=== PATIENT | male | born 1970 | race Caucasian/White ===

== ENCOUNTER 2016-09-27 11:03 | Outpatient (CLI) ==
[2012-10-07 19:05] VITALS: BMI 20.9
== END 2016-09-27 11:04 ==
LOC: AMBL 11:03
PROVIDERS: ATTEND Internal Medicine
DX: R56.9 Unspecified convulsions (principal); S00.12XA Contusion of left eyelid and periocular area, initial encounter; R41.0 Disorientation, unspecified; R00.0 Tachycardia, unspecified; G35 Multiple sclerosis; I70.90 Unspecified atherosclerosis; W22.8XXA Striking against or struck by other objects, initial encounter

== ENCOUNTER 2018-03-01 13:51 | Inpatient (IN) ==
--- NOTE | 2018-03-01 14:59 | ED.PDOC ---
General ED Provider: Dr. ALESSANDRA RODRIGUEZ Chief Complaint: Non-specific Complaint Stated Complaint: Altered mental status. Friend of family brings patient in. Friend called by pts father due to pt has been sleeping for the last 2 days and difficult to awaken. Patient has hx MS and normally walks with cane. Friend stated has not had oral intake for past 2 days. It seems his MS symptoms have worsened with progressive weakness. Unfamiliar with meds he has taken. Time Seen by Physician: 14:25 Mode of Arrival: Walk-In Information Source: Patient Exam Limitations: No limitations Primary Care Provider: ALESSANDRA GRAY Nursing and Triage Documentation Reviewed and Agree: Yes Does patient meet sepsis criteria?: No System Inflammatory Response Syndrome: Pulse >90 BPM Sepsis Protocol: For patient's 13 years and over: Temp is 96.8 and below OR 101 and greater Pulse >90 BPM Resp >20/minute Acutely Altered Mental Status Are patient's symptoms suggestive of a new infection, such as: -Pneumonia -Skin, Soft Tissue -Endocarditis -UTI -Bone, Joint Infection -Implantable Device -Acute Abdominal Infection -Wound Infection -Meningitis -Blood Stream Catheter Infection -Unknown Neurological Complaint Exam - Altered Mental Status Complaint/Exam Current Mental Status: Confusion Onset: Gradual Symptoms Are: Worse Timing: Constant Episodes Lasting: Minutes Initial Severity: Moderate Current Severity: Moderate Eye Deviation Present: No Character: Reports: Confusion, Lethargy Aggravating: Reports: None Alleviating: Reports: None Associated Signs and Symptoms: Reports: Weakness, Illness Related History: Denies: Similar episode, Suicidal Ideation Cardiac Risk Factors: Reports: None CVA Risk Factors: Reports: Hypertension Carotid Bruit Present: No Nystagmus Present: No Gag Reflex Present: Yes Meningeal Signs Positive: No Focal Weakness: Present: RLE, LLE Focal Sensory Loss: Present: None Gait: Abnormal [id number]: Abnormal right, Abnormal left Babinski Sign: Negative Right, Negative Left Signs of Injury: Present: Normal findings Thrombolytics Considered: No Differential Diagnoses: Intoxication, Metabolic Disorder, Overdose, Medication reaction, Other (Overdose) Review of Systems - Review Of Systems Constitutional: Reports: Weakness Eyes: Reports: No symptoms Ears, Nose, Mouth, Throat: Reports: No symptoms Respiratory: Reports: Cough Cardiac: Reports: No symptoms GI: Reports: No symptoms : Reports: No symptoms Musculoskeletal: Reports: No symptoms Skin: Reports: No symptoms Neurological: Reports: Cognitive dysfunction Endocrine: Reports: No symptoms Hematologic/Lymphatic: Reports: No symptoms All Other Systems: Reviewed and Negative Past Medical History - Past Medical History Previously Healthy: No Endocrine: Reports: Unknown Cardiovascular: Reports: Unknown Respiratory: Reports: Unknown Hematological: Reports: Unknown Gastrointestinal: Reports: Unknown Genitourinary: Reports: Unknown Neuro/Psych: Reports: Unknown Musculoskeletal: Reports: Unknown Cancer: Reports: Unknown Other Pertinent Past Medical History: legally blind Ambulates with a straight cane - Surgical History General Surgical History: Reports: Unknown - Family History Family History: Reports: Unknown - Social History Smoking Status: Current every day smoker, Heavy tobacco smoker Hx Substance Use: No Alcohol Screening: Occasionally Physical Exam - Physical Exam Appearance: Ill-appearing, Thin Ill-appearing: Moderate Pain Distress: None Eyes: APRIL, EOMI, Conjunctiva clear ENT: Ears normal, Nose normal, Oropharynx normal Neck: Supple Respiratory: Airway patent, Breath sounds clear, Breath sounds equal Cardiovascular: RRR GI/: Soft, Nontender, No masses, Bowel sounds normal Musculoskeletal: Limited strength (diminished strength in lower extremities) Skin: Warm, Dry Neurological: Motor intact, Cranial nerves intact, Alert, Oriented (To place, time and location ), Alert to verbal Interpretation - Radiology Interpretation Radiology Interpretation By: Radiologist Exam Interpreted: CXR (NO abnormalities), CT Scan (No acute intracranial abnormalities/old cva) Physician Notification - Case Discussed Physician Notified: Dr Gan-Discussed case Time of Notification: 18:30 (Agrees for admission) Critical Care Note - Critical Care Note Total Time (mins): 120 Course - Course Hematology/Chemistry: 03/01/18 15:13 03/01/18 15:13 Orders, Labs, Meds: Lab Review 03/01/18 03/01/18 03/01/18 15:00 15:10 15:13 WBC 22.02 H RBC 4.90 Hgb 16.2 Hct 49.5 MCV 101.0 H MCH 33.1 H MCHC 32.7 RDW Coeff of Aj 15.0 H Plt Count 370 Immature Gran % (Auto) 0.6 Neut % (Auto) 82.4 Lymph % (Auto) 6.0 L [place] % (Auto) 5.2 Eos % (Auto) 5.3 Baso % (Auto) 0.5 Immature Gran # (Auto) 0.1 Neut # (Auto) 18.1 H Lymph # (Auto) 1.3 [place] # (Auto) 1.1 Eos # (Auto) 1.2 H Baso # (Auto) 0.1 Puncture Site O2 Saturation ABG pH ABG pCO2 ABG pO2 ABG HCO3 ABG Total CO2 ABG Base Excess FiO2 % Sodium Potassium Chloride Carbon Dioxide Anion Gap BUN Creatinine Estimated GFR (MDRD) BUN/Creatinine Ratio Glucose Lactic Acid Calcium Magnesium Total Bilirubin AST ALT Alkaline Phosphatase Total Creatine Kinase CK-MB (CK-2) CK-MB (CK-2) % Troponin I < 0.012 Total Protein Albumin Globulin Albumin/Globulin Ratio Procalcitonin Urine Color Urine Clarity Urine pH Ur Specific [place] Urine Protein Urine Glucose (UA) Urine Ketones Urine Blood Urine Nitrite Urine Bilirubin Urine Urobilinogen Ur Leukocyte Esterase Ur Squamous Epith Cells Hyaline Casts Urine Opiates Screen Ur Oxycodone Screen Urine Methadone Screen Ur Propoxyphene Screen Ur Barbiturates Screen U Tricyclic Antidepress Ur Phencyclidine Scrn Ur Amphetamine Screen U Methamphetamines Scrn U Benzodiazepines Scrn Urine Cocaine Screen U Cannabinoids Screen Influ A Molecular Assay Negative by naat Influ B Molecular Assay Negative by naat 03/01/18 03/01/18 03/01/18 15:13 16:19 16:35 WBC RBC Hgb Hct MCV MCH MCHC RDW Coeff of Aj Plt Count Immature Gran % (Auto) Neut % (Auto) Lymph % (Auto) [place] % (Auto) Eos % (Auto) Baso % (Auto) Immature Gran # (Auto) Neut # (Auto) Lymph # (Auto) [place] # (Auto) Eos # (Auto) Baso # (Auto) Puncture Site Rb O2 Saturation 90.0 L ABG pH 7.236 L* ABG pCO2 42.1 ABG pO2 69.0 L ABG HCO3 17.9 L ABG Total CO2 19 L ABG Base Excess -10 L FiO2 % 21.0 Sodium 139.8 Potassium 4.31 Chloride 107.2 H Carbon Dioxide 17.4 L Anion Gap 19.51 BUN 20.5 H Creatinine 1.12 H Estimated GFR (MDRD) 70.00 BUN/Creatinine Ratio 18.30 Glucose 74.5 Lactic Acid Calcium 9.39 Magnesium 1.94 Total Bilirubin 0.33 AST 61.9 H ALT 19.7 Alkaline Phosphatase 88.9 Total Creatine Kinase 2089.9 H CK-MB (CK-2) 37.100 H* CK-MB (CK-2) % 1.7700 Troponin I Total Protein 7.15 Albumin 4.44 Globulin 2.71 Albumin/Globulin Ratio 1.63 Procalcitonin Urine Color Urine Clarity Urine pH Ur Specific [place] Urine Protein Urine Glucose (UA) Urine Ketones Urine Blood Urine Nitrite Urine Bilirubin Urine Urobilinogen Ur Leukocyte Esterase Ur Squamous Epith Cells Hyaline Casts Urine Opiates Screen Negative Ur Oxycodone Screen Positive Urine Methadone Screen Negative Ur Propoxyphene Screen Negative Ur Barbiturates Screen Negative U Tricyclic Antidepress Positive Ur Phencyclidine Scrn Negative Ur Amphetamine Screen Negative U Methamphetamines Scrn Negative U Benzodiazepines Scrn Positive Urine Cocaine Screen Negative U Cannabinoids Screen Negative Influ A Molecular Assay Influ B Molecular Assay 03/01/18 03/01/18 03/01/18 16:35 16:43 16:43 WBC RBC Hgb Hct MCV MCH MCHC RDW Coeff of Aj Plt Count Immature Gran % (Auto) Neut % (Auto) Lymph % (Auto) [place] % (Auto) Eos % (Auto) Baso % (Auto) Immature Gran # (Auto) Neut # (Auto) Lymph # (Auto) [place] # (Auto) Eos # (Auto) Baso # (Auto) Puncture Site O2 Saturation ABG pH ABG pCO2 ABG pO2 ABG HCO3 ABG Total CO2 ABG Base Excess FiO2 % Sodium Potassium Chloride Carbon Dioxide Anion Gap BUN Creatinine Estimated GFR (MDRD) BUN/Creatinine Ratio Glucose Lactic Acid 0.82 Calcium Magnesium Total Bilirubin AST ALT Alkaline Phosphatase Total Creatine Kinase CK-MB (CK-2) CK-MB (CK-2) % Troponin I Total Protein Albumin Globulin Albumin/Globulin Ratio Procalcitonin 6.56 Urine Color Yellow Urine Clarity Clear Urine pH 6.0 Ur Specific [place] >=1.030 Urine Protein 1+ Urine Glucose (UA) Negative Urine Ketones 4+ Urine Blood Negative Urine Nitrite Negative Urine Bilirubin 2+ Urine Urobilinogen 0.2 Ur Leukocyte Esterase Negative Ur Squamous Epith Cells Not present Hyaline Casts 20-30 Urine Opiates Screen Ur Oxycodone Screen Urine Methadone Screen Ur Propoxyphene Screen Ur Barbiturates Screen U Tricyclic Antidepress Ur Phencyclidine Scrn Ur Amphetamine Screen U Methamphetamines Scrn U Benzodiazepines Scrn Urine Cocaine Screen U Cannabinoids Screen Influ A Molecular Assay Influ B Molecular Assay Orders Category Date Time Status ADMIT PATIENT INPATIENT .TO SCU (MONITORED BED) ADMISSION 03/01/18 18:24 Active ABG DRAW REQUEST Stat CARDIO 03/01/18 16:19 Completed EKG-(ED ONLY) Stat CARDIO 03/01/18 14:58 Completed TELEMETRY MONITORING TELE CARE 03/01/18 18:26 Active [facility] [ED CATHETER INSERTION AND CARE] .ONCE EMERGENCY 03/01/18 16:17 Active IV [ED IV/MEDIPORT/POWERPORT] .ONCE EMERGENCY 03/01/18 15:21 Active ABG Stat LAB 03/01/18 16:19 Completed BLOOD CULTURE (ED ONLY) Stat LAB 03/01/18 16:43 Received CBC W/ AUTO DIFF Stat LAB 03/01/18 15:13 Completed CMP [COMPREHENSIVE METABOLIC PANEL] Stat LAB 03/01/18 15:13 Completed CPK [CREATINE KINASE] Stat LAB 03/01/18 15:13 Completed FLU A & B MOLECULAR [FLU A/B MOLECULAR] Stat LAB 03/01/18 15:10 Completed LACTIC ACID Stat LAB 03/01/18 16:43 Completed MAGNESIUM Stat LAB 03/01/18 15:13 Completed PROCALCITONIN Stat LAB 03/01/18 16:43 Completed TROPONIN I Stat LAB 03/01/18 15:00 Completed UA [URINALYSIS C & S IF INDICATED] Stat LAB 03/01/18 16:35 Completed URINE DRUG SCREEN (RAPID FOR ED) [DRUG SCREEN, URINE, LAB 03/01/18 16:35 Completed RAPID] Stat 0.9 % Sodium Chloride [Saline Flush] MEDS 03/01/18 15:22 Active 1 syr IVF PRN PRN 0.9 % Sodium Chloride [Saline Flush] MEDS 03/01/18 15:22 Discontinued 1 syr IVF PRN PRN Lidocaine HCl [Uro-Jet] MEDS 03/01/18 16:18 Discontinued 10 ml MUCOUSMEMB .STK-MED ONE Lidocaine HCl [Uro-Jet] MEDS 03/01/18 16:17 Discontinued 10 ml MUCOUSMEMB ONCE STA Naloxone HCl [Narcan] MEDS 03/01/18 16:37 Discontinued 0.4 mg IVP ONCE STA Naloxone HCl [Narcan] MEDS 03/01/18 17:31 Discontinued 0.4 mg IVP ONCE STA Sodium Chloride 0.9% [Sodium Chloride] 1,000 ml MEDS 03/01/18 15:22 Discontinued IV BOLUS CHEST, 2 VIEWS PA & LAT Stat RADS 03/01/18 14:[address] HEAD W/O CONTRAST Stat RADS 03/01/18 14:59 Completed Medications Generic Name Dose Route Start Last Admin Trade Name Suraj PRN Reason Stop Dose Admin Enoxaparin Sodium 40 mg 03/01/18 19:30 Lovenox SUBCUT DAILY [facility] Aztreonam 1 gm/ Sodium 50 mls @ 75 mls/hr 03/01/18 19:30 Chloride IV Q8HR GLENDY Cefepime HCl 2 gm/ Sodium 100 mls @ 100 mls/hr 03/02/18 09:00 Chloride IV Q12HR GLENDY Gentamicin Sulfate 60 mg/ 51.5 mls @ 100 mls/hr 03/01/18 21:00 Sodium Chloride IV Q8HR GLENDY Cefepime HCl 2 gm/ Sodium 100 mls @ 100 mls/hr 03/01/18 19:35 Chloride IV Q12HR [facility] Sodium Chloride 1,000 mls @ 200 mls/hr 03/01/18 19:30 Sodium Chloride IV .Q5H [facility] Methylprednisolone Sodium Succinate 125 mg 03/01/18 20:00 Solu-Medrol 125 Mg IVP Q8HR [facility] Sodium Chloride 1 syr 03/01/18 15:22 03/01/18 15:41 Saline Flush IVF 1 syr PRN PRN Administration To flush IV Discontinued Medications Generic Name Dose Route Start Last Admin Trade Name Suraj PRN Reason Stop Dose Admin Sodium Chloride 1,000 mls @ 500 mls/hr 03/01/18 15:22 03/01/18 15:41 Sodium Chloride IV 03/01/18 17:21 500 mls/hr BOLUS STA Administration Cefepime HCl 2 gm/ Sodium 100 mls @ 100 mls/hr 03/01/18 18:30 03/01/18 19:02 Chloride IV 100 mls/hr Q12HR GLENDY Administration Lidocaine HCl 10 ml 03/01/18 16:17 03/01/18 16:41 Uro-Jet MUCOUSMEMB 03/01/18 16:18 10 ml ONCE STA Administration Naloxone HCl 0.4 mg 03/01/18 16:37 03/01/18 16:58 Narcan IVP 03/01/18 16:38 0.4 mg ONCE STA Administration Naloxone HCl 0.4 mg 03/01/18 17:31 03/01/18 17:40 Narcan IVP 03/01/18 17:32 0.4 mg ONCE STA Administration Sodium Chloride 1 syr 03/01/18 15:22 Saline Flush IVF PRN PRN To flush IV Vital Signs: Temp Pulse Resp BP Pulse Ox 03/01/18 17:13 100 H 13 144/129 H 100 03/01/18 13:51 98.4 F 123 H 20 89/66 L 93 L Departure - Departure Time of Disposition: 18:45 Disposition: ADMITTED INPATIENT Discharge Problem: Altered mental state, Metabolic acidosis, Drug overdose, Rhabdomyolysis Condition: Serious Pt referred to PMD for follow-up: No IPMP verified?: No Allergies/Adverse Reactions: Allergies erythromycin base Adverse Reaction (Verified 03/01/18 14:02) gabapentin [From Neurontin] Adverse Reaction (Verified 03/01/18 14:02) Penicillins Adverse Reaction (Verified 03/01/18 14:02) Home Medications: Ambulatory Orders Carisoprodol [Soma] 350 mg PO QID 10/07/12 Clopidogrel Bisulfate [Plavix] 75 mg PO DAILY 12/15/16 Oxycodone HCl/Acetaminophen [Percocet 10-325 mg Tablet] 1 tab PO QID 12/15/16 Amitriptyline HCl [Elavil] 100 mg PO DAILY 01/22/18 Disposition Discussed With: Patient, Family (per Dr Gan)
[2018-03-01] MEDS ORDERED: SODIUM CHLORIDE 1,000 ML IV STA (15:22)
--- NOTE | 2018-03-01 15:53 | DI ---
EXAM: CHEST FRONTAL AND LATERAL VIEWS HISTORY: Altered mental status. COMPARISON: 12/15/2016 FINDINGS: Heart size and mediastinal contour remain within normal limits. Lungs are hyperinflated . No acute infiltrates are seen. No vascular congestion. There is no consolidation, visible pleura l fluid or pneumothorax. Bones reveal no acute fracture. IMPRESSION: No acute cardiopulmonary process.
--- NOTE | 2018-03-01 16:04 | CT ---
EXAM: CT of the head without contrast History: Altered mental status. Comparison: Head CT 01/22/2018 Technique: Multiplanar CT images through the head were obtained without the administration of IV con trast Findings: The visualized paranasal sinuses and mastoid air cells are clear in general. No acute joshua varial abnormalities. Intracranially there is mild diffuse cerebral atrophy which is stable. No dominant mass or midline s hift. No hydrocephalous. No acute intracranial hemorrhage or abnormal extraaxial fluid collections. Stable small area of encephalomalacia within the left frontal lobe compatible with old infarction. Impression: 1. No acute intracranial process. 2. Stable mild diffuse cerebral atrophy. 3. Stable small area of encephalomalacia within the left frontal lobe compatible with old infarction .
[2018-03-01] MEDS ORDERED: URO-JET MUCOUSMEMB STA (16:17)
[2018-03-01] MEDS ORDERED: URO-JET MUCOUSMEMB ONE (16:18)
[2018-03-01] MEDS ORDERED: NARCAN IVP STA ×2 (16:37→17:31)
[2018-03-01] MEDS ORDERED: MAXIPIME 2 GM in SODIUM CHLORIDE 100 ML IV SCH ×2 (18:30→19:35)
[2018-03-01] MEDS: MAXIPIME ONE ×2 (19:01→19:02)
[2018-03-01] MEDS ORDERED: SODIUM CHLORIDE 1,000 ML IV SCH (19:30)
--- NOTE | 2018-03-01 20:37 | CT ---
EXAM: CT of the chest without contrast. HISTORY: Sepsis. COMPARISON: None. TECHNIQUE: Contiguous axial images were obtained from lung apices to the upper abdomen. Study was p erformed without contrast. Sagittal and coronal reformats reviewed. FINDINGS: The lung windows show no lobar consolidation or effusion. There is minimal atelectasis in the left lung base. There are no suspicious pulmonary nodules. Minimal emphysematous changes are s een in the lung apices. There is a soft tissue density in the left mainstem bronchus, measuring up t o 10 x 3 mm. This has the appearance of mucus. There is mucous plugging in the left lower lobe bron chi as well. The heart size is within normal limits. There is no significant mediastinal or hilar a denopathy. Limited views of the upper abdomen are unremarkable there is nonobstructing calcification in the righ t kidney. IMPRESSION: 1. Minimal left lower lobe atelectasis. Consolidation or effusion. 2. Right nephrolithiasis. No obstructing stones.
--- NOTE | 2018-03-01 20:41 | CT ---
EXAM: CT of the abdomen and pelvis without contrast. HISTORY: Sepsis. PROCEDURE: Contiguous axial CT images of the abdomen and pelvis without contrast with coronal and sa gittal reformats. FINDINGS: There is motion artifact which limits the exam. The liver, gallbladder, pancreas, spleen, adrenal glands and left kidney are normal in appearance. There is a 2 mm nonobstructive calcificatio n in the right kidney. The abdominal aorta is within normal limits in diameter. There are atheroscl erotic calcifications in the abdominal aorta and bilateral iliac arteries. The appendix is normal in appearance. There is fecal stasis in the colon. No bowel obstruction. No free fluid or free air i n the abdomen or pelvis. There is a Solano catheter in the bladder and the bladder is minimally fille d. There is minimal air in the bladder consistent with the Solano catheter placement. The seminal v esicles and prostate gland are unremarkable. The bones and soft tissues are unremarkable. CT chest of 03/01/2018 dictated separately. Impression: Fecal stasis in the colon. Nonobstructive right nephrolithiasis as described. Solano catheter in the bladder.
[2018-03-01] MEDS ORDERED: AZACTAM ONE (21:14)
[2018-03-01] MEDS ORDERED: GENTAMICIN SULFATE ONE (21:15)
[2018-03-01] MEDS ORDERED: MAXIPIME IV ONE (21:15)
[2018-03-01] MEDS: AZACTAM 1 GM in SODIUM CHLORIDE 50 ML IV SCH ×2 (21:26→21:27)
[2018-03-01] MEDS: LOVENOX SUBCUT SCH (21:28)
[2018-03-01] MEDS: SOLU-MEDROL 125 MG IVP SCH ×2 (21:28→21:36)
[2018-03-01] MEDS: SODIUM CHLORIDE IV SCH (22:26)
[2018-03-01] MEDS: GENTAMICIN SULFATE IV SCH (22:26)
[2018-03-01] MEDS ORDERED: INFUVITE ADULT IV ONE (23:48)
[2018-03-01] MEDS: INFUVITE ADULT 10 ML in DEXTROSE 5%-LR IV SOLUTION 1,000 ML IV SCH (23:52)
[2018-03-02 01:13] VITALS: BMI 12.6
[2018-03-02] MEDS ORDERED: AZACTAM ONE (04:27)
[2018-03-02] MEDS ORDERED: GENTAMICIN SULFATE ONE (04:27)
[2018-03-02] MEDS ORDERED: INFUVITE ADULT IV ONE ×3 (04:33→19:31)
[2018-03-02] MEDS: SOLU-MEDROL 125 MG IVP SCH ×2 (04:41→13:04)
[2018-03-02] MEDS ORDERED: SODIUM CHLORIDE 50 ML IV ONE ×2 (04:42→05:18)
[2018-03-02] MEDS: AZACTAM 1 GM in SODIUM CHLORIDE 50 ML IV SCH ×2 (05:19→15:25)
[2018-03-02] MEDS: GENTAMICIN SULFATE IV SCH ×3 (05:19→21:47)
[2018-03-02] MEDS: SODIUM CHLORIDE IV SCH ×3 (05:19→21:47)
[2018-03-02] MEDS: INFUVITE ADULT 10 ML in DEXTROSE 5%-LR IV SOLUTION 1,000 ML IV SCH ×3 (05:20→19:42)
[2018-03-02] MEDS: LOVENOX SUBCUT SCH (09:12)
[2018-03-02] MEDS: MAXIPIME 2 GM in SODIUM CHLORIDE 100 ML IV SCH ×2 (09:12→21:48)
--- NOTE | 2018-03-02 13:38 | US ---
EXAM: Bilateral carotid artery Doppler History: Weakness. Technique: Multiple sonographic images through the bilateral internal carotid arteries were obtained . Color duplex Doppler was used to interrogate vascular flow. Findings: The right ICA peak systolic velocity is within normal limits measuring 106 cm/sec. The right ICA/cca PSV ratio is normal at 1.3. The right vertebral artery is patent and demonstrates antegrade flow. G ray scale images demonstrate no significant plaque buildup within the right internal carotid artery. The left ICA peak systolic velocity is within normal limits measuring 75 cm/sec. The left ICA/cca PS V ratio is normal at 0.70. The left vertebral artery is patent and demonstrates antegrade flow. Gra y scale images demonstrate no significant plaque buildup within the left internal carotid artery Impression: No significant hemodynamic stenosis of the bilateral internal carotid arteries.
[2018-03-03] MEDS ORDERED: INFUVITE ADULT IV ONE ×4 (02:58→23:58)
[2018-03-03] MEDS: INFUVITE ADULT 10 ML in DEXTROSE 5%-LR IV SOLUTION 1,000 ML IV SCH ×5 (03:02→17:41)
[2018-03-03] MEDS: GENTAMICIN SULFATE IV SCH ×3 (05:48→20:15)
[2018-03-03] MEDS: SODIUM CHLORIDE IV SCH ×3 (05:48→20:15)
[2018-03-03] MEDS: MAXIPIME 2 GM in SODIUM CHLORIDE 100 ML IV SCH ×2 (08:43→20:56)
[2018-03-03] MEDS: LOVENOX SUBCUT SCH (08:44)
[2018-03-04] MEDS: INFUVITE ADULT 10 ML in DEXTROSE 5%-LR IV SOLUTION 1,000 ML IV SCH ×3 (00:02→19:14)
[2018-03-04] MEDS: SODIUM CHLORIDE IV SCH ×3 (04:22→21:56)
[2018-03-04] MEDS: GENTAMICIN SULFATE IV SCH ×3 (04:22→21:56)
[2018-03-04] MEDS ORDERED: INFUVITE ADULT IV ONE (05:26)
[2018-03-04] MEDS: MAXIPIME 2 GM in SODIUM CHLORIDE 100 ML IV SCH ×2 (08:42→20:50)
[2018-03-04] MEDS: LOVENOX SUBCUT SCH (08:45)
[2018-03-04] MEDS ORDERED: K-DUR PO STA (11:55)
[2018-03-04] MEDS: K-DUR PO SCH (16:38)
[2018-03-05] MEDS: GENTAMICIN SULFATE IV SCH ×2 (05:08→12:36)
[2018-03-05] MEDS: SODIUM CHLORIDE IV SCH ×2 (05:08→12:36)
[2018-03-05] MEDS: MAXIPIME 2 GM in SODIUM CHLORIDE 100 ML IV SCH (09:21)
[2018-03-05] MEDS: K-DUR PO SCH (09:21)
[2018-03-05] MEDS: LOVENOX SUBCUT SCH (09:22)
--- NOTE | 2018-03-05 10:49 | ECHO2D ---
Date of Exam: 03/02/18 Ordering Physician: DR. GWYN LANDRY-HOSPITALIST Room #: SCU 3 Reason for Echo: SOB, LETHARGY, CK>2000 M-Mode Normal Adult Results LV Dimensions Normal Adult Results AoV Opening excursions >1.6 >1.6 LVEDD-base- 3.5-5.8 4.7 Ao root dimensions 2.0-3.7 3.4 LVESD-base- 3.1-4.6 L. Atrium dimensions 1.9-3.8 3.4 Post. Wall thickness 0.8-1.1 1.0 IV septum (thickness) 0.7-1.2 1.1 Post. Wall excursion 0.72-1.3 NORMAL Septal motion NORMAL Systolic motion R. Ventricular cavity 1.5-2.0 NORMAL LVEF 60% 55% Paradoxical septal wall motion NORMAL 2-D : 2-D M Mode Echocardiogram was performed using apical four chamber and left parasternal long and short axis views. Mitral, tricuspid and aortic valves appear to be normal. Contractility of the left ventricle seems to be normal, so is the cavity size. Left atrial cavity size and aortic root appear to be normal. There is no pericardial effusion. There is no thrombus noted in the left ventricular or left aortic cavity. No mitral valve prolapse noted. M-MODE: MV: NORMAL AV: NORMAL TV: NORMAL PV: CHAMBER SIZE: NORMAL WALL MOTION: NORMAL PERICARDIUM: NORMAL INTERPRETATION: 1. NORMAL 2 "D" "M" "MODE" ECHO MTDD
--- NOTE | 2018-03-05 11:49 | HP ---
DATE OF SERVICE: 03/01/18 CHIEF COMPLAINT: Difficult to arouse. HISTORY OF PRESENT ILLNESS: The patient resides with his father and father was concerned about him since he has not been eating and difficult to arouse in the last two days. The father contacted a friend of the patient and came and saw him and brought him to the emergency room. The patient had not each and drunk anything substantial in the last two days and he has progressive weakness. The patient has MS and there had been a change in medications. Medication is prescribed by Dr. Santiago a neurologist who follows his MS. The patient also has other medications. He had a pain medication prescribed by [facility] that was filled 02/26/18. Medication was Oxycodone/APAP 10-325. There was 120 in the bottle and only 10 were left according to the father. I did ask the father if he can bring the bottles of medication and he told me that he would try since he also has an illness. He has a GI malignancy plus atrial fibrillation. He claimed that he had to go to the emergency room to restart his heart. The patient has consumed 110 tablets of the oxycodone 10-325 for three days. I don't know about the other medications. The patient had listed the medications as Soma 325mg tablet four times a day, Plavix 75mg daily, Amitriptyline 25mg tablet 100mg daily. I see this patient in the emergency room. The patient does arouse when you call his name but after he answers he goes back to sleep. He does have some wasting of the muscles in the feet and pedal pulses are palpable. Heart is audible and tachycardic. The patient was given two intervenous Narcan 0.4mg. The patient had a bit of response with the first Narcan compared to the second. I did talk to Dr. Salvador about the patient. This patient was a patient of Dr. Mohan but evidently the patient had removed his records to see another provider. This is the first time that I have seen this patient. PAST PERSONAL HISTORY: The patient was diagnosed with MS in 2000 Swelling of the right big toe some 5 years ago and went to a [facility]. 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 Severe peripheral arterial disease, left femoral popiteal bypass most likely and a stent to the right femoral times two History of seizure but not on any medication now FAMILY HISTORY: Father had GI carcinoma probably gastric and also cardiac arrhythmia-atrial fibrillation SOCIAL HISTORY: The patient is single and resides with his father. He does smoke heavily. No significant alcohol use. Had a history of drug abuse. MEDICATIONS: Soma 350mg four times a day Plavix 75mg daily Oxycodone/APAP 10-325mg one four times a day Amitriptyline 100mg daily ALLERGIES: Erythromycin Gabapentin Penicillin REVIEW OF SYSTEMS: CONSTITUTIONAL: The patient lethargic although arousable but not able to answer questions for the rest of the systems. His speech was slurred. The patient is lethargic but has movement of all extremities. PHYSICAL EXAMINATION: GENERAL: 47 year old male who is lethargic with slurred speech but arousable and goes back to sleep. His pulse is rapid but normal sinus rhythm. He had a history of multiple sclerosis since 2000. He was admitted to the hospital because of lethargy plus dehydration, markedly elevated WBC 22,020 increase neutrophils but no stabs. MCV and MCH were elevated. Atrial blood gasses are acidotic, metabolic. CO2 17.4 on chemistry. HCO3 is 18 on ABG and total CO2 is 19. BUN slightly elevated 20.5, creatinine 1.12, EGFR 70. Total CK 2,089.9 and CK-MB is 37.1. Troponin is normal less than 0.012. The patient's general appearance is one that is ill kept. HEAD: Unremarkable. Scalp no active dermatitis FACE: Symmetrical and equal with no facial weakness. EYES: Pupils equal/reactive to light. Conjunctivae somewhat pale. Sclerae not icteric. MOUTH: Could not examined adequately. THROAT: No inflammation, tumors or exudate. NECK: No masses. No bruit. No tenderness. No rigidity. CHEST: Symmetrical and equal with good expansion. LUNGS: Breath sounds are heard in both sides, diminished but no rales or wheezing. HEART: Audible and regular with good tones. No murmurs. Tachycardic ABDOMEN: Flat, soft with no remarkable tenderness. No guarding. No masses palpable. Bowel sounds are active. EXTERNAL GENITALIA: Not examined RECTAL: Not Performed LOWER EXTREMITIES: Muscle wasting in both lower legs. Pedal pulses are absent in both feet. He has an amputation of right big toe. UPPER EXTREMITIES: Symmetrical and equal ASSESSMENT: 1. Lethargy, etiology undetermined maybe related to drug ingestion, more than prescribed 2. History of MS with exacerbation maybe 3. History of tobacco use and abuse, persistent 4. Elevated Procalcitonin with no obvious source of infection. No signs of mucus in the main stream bronchus and the left lower lobe bronchi 5. Metabolic acidosis 6. Dehydration 7. Rhabdomyolysis PROGNOSIS: Guarded TIME SPENT: GREATER THAN 65 MINUTES MTDD
--- NOTE | 2018-03-05 11:56 | PN ---
DATE OF SERVICE: 03/02/18 SUBJECTIVE: The patient this evening is now alert and responsive. He doesn't know why he was drowsy and lethargic in the last two days. Claimed that his medication for the MS was continued because of infection. He could not tell me what kind of infection and where. Atrial blood gasses at room air FiO2 21 showed oxygen saturation 92, pH 7.295, pCO2 38, pO2 70, HCO3 18.8, Total CO2 20 from 19, -8 from -10 yesterday. BUN is down to 15.2 and creatinine 0.74 from 1.12. EGFR is now 113cc. Blood sugar 215, Total CK is now down to 980.7 from 2,089. Troponin remained essentially the same as less than 0.012. Total protein is below normal. Lipids normal. Procalcitonin today is down to 3.54 from 6.56. This patient is receiving Cefepime 2grams every 8 hours and Gentamicin 60mg Q 8 hours. Blood culture is negative for no growth for the first day and MRSA screen is negative. The patient did eat 100% of his snack. Abdomen is soft with nontender. LUNG: still with no rales or wheezing. Diminished breath sounds. HEART: No longer tachycardiac but still slightly rapid. VITAL SIGNS: Temperature 97.9, pulse 88, blood pressure 136/78, respiratory rate 16, oxygen saturation 99 at room air. MTDD
--- NOTE | 2018-03-05 13:32 | PN ---
DATE OF SERVICE: 03/03/18 SUBJECTIVE: The patient was afebrile throughout the day and vital signs at 2:00pm showed a temperature of 98.7, pulse 82, blood pressure 126/78, respiratory rate 18, oxygen saturation 99 at room air. CBC still 12,520 and his hgb and hct are below normal. The MCV and MCH still elevated. The atrial blood gasses now shows an oxygen saturation of 96 at room air, pH 7.390, pCO2 41.2, pO2 84, bicarb is 24.9 and now normal, total CO2 26 normal. Electrolytes are acceptable no clinically significance. BUN now is 6.6 and creatinine is 0.66. EGFR 156, blood glucose 115.5, calcium lower 8.30, total CK 339.1 from 2,089 and CK-MB is 3.090. The Troponin for the third time is still normal at less than 0.012. NT Pro BNP for the first time was elevated but not determined previously now 1, 140. Procalcitonin is down to 1.16 and repeat urinalysis is completely normal. The Gentamicin Trough is 1.4 and peak was 1.1 yesterday. The patient is doing much better today and I had a talk with him. He does remember about his father being sick. He has movement of all extremities and I told me about what happened to his big toe. He claimed that there was a callous in that big toe and the teller vault did work on it and he mentioned that the instruments used were not sterile. He just pulled out a draw and got out his instruments and started working on his big toe. He ended up having an amputation done in [place]. He also explained to me that his medication Gilenya was discontinued by Dr. Chowdary partner of Dr. Castrejon The Gilenya was discontinued because of an infection. I told him that I do understand that since the medication is an immunosuppressant and if the medication was continued that the infection might kill him. A repeat urinalysis is now complete normal. There are no ketone bodies anymore. RADHA
--- NOTE | 2018-03-05 13:45 | PN ---
DATE OF SERVICE: 03/04/18 SUBJECTIVE: The patient alert and oriented times four and cooperative. I asked him if he does walk at home and he says that yes he does at home using a cane. I did suggest to him that we will walk him today and he was willing and I told him that we will use a walker however when the nurse approached him he wanted to use his cane because he had been used to it. He did walk in the hallway and tolerated the ambulation very well. Blood culture is still negative until now. Still receiving Cefepime 2 grams every 8 hours, Gentamicin 60mg every 8 hours and Lovenox 40mg SUBCUT daily. The Procalcitonin is now down to 0.61 and the NT PRO BNP is down to 972 from 1,040. LUNGS: Clear still with diminished breath sounds HEART: Normal sinus rhythm, no longer tachycardiac I still do not know what the source of the leukocytosis maybe just from the dehydration. It is possible that the mucus plugs may have caused some atelectasis causing the leukocytosis. The Solano catheters has been removed and the patient is urinating without difficulty. He did eat 50% of his lunch today. VITAL SIGNS: Temperature 98.8, pulse 87, blood pressure 101/65, respiratory rate 18, oxygen saturation 98% at room air. I still do not have the blood levels of the substance that he is using the Oxycodone, Soma and Elavil. Plavix is used for the peripheral arterial disease when both sides. He probably needs to stop smoking and is advised to do so. Explained to him what happens when he smokes. It is more pertinent on him since he already has severe peripheral arterial disease that was corrected surgically. RADHA
[2018-03-05 14:18] VITALS: BP 116/79; TEMP 98.5
--- NOTE | 2018-03-08 08:28 | CONS ---
DATE OF SERVICE: 03/04/18 CONSULT FOLLOWUP SUBJECTIVE: 47 year old white male hospitalized. The patient is seen on consultation for elevation CK level. REVIEW OF SYSTEMS: CONSTITUTIONAL: No night sweats. No fatigue, malaise, lethargy. No fever or chills. HEENT: Eyes: No visual changes. No eye pain. No eye discharge. ENT: No runny nose. No epistaxis. No sinus pain. No sore throat. No odynophagia. No ear pain. No congestion. RESPIRATORY: No cough, no congestion. No hemoptysis. CARDIOVASCULAR: No angina symptoms. No CHF symptoms. No atypical chest pain for CAD. No palpitations. No shortness of breath. GASTROINTESTINAL: No abdominal pain. No nausea or vomiting. No diarrhea or constipation. No hematemesis. No hematochezia. GENITOURINARY: No urgency. No frequency. No dysuria. No hematuria. No obstructive symptoms. No discharge. No pain. No significant abnormal bleeding. MUSCULOSKELETAL: No musculoskeletal pain. No joint swelling. No arthritis. NEUROLOGICAL: No headache. No neck pain. No syncope. No seizures. No dizziness. PSYCHIATRIC: Not anxious. No depression. No suicidal thoughts. No homicidal thoughts. SKIN: No rash. No lesions. No wounds. ENDOCRINE: No unexplained weight loss. No weight gain. HEMATOLOGIC/LYMPHATIC: No anemia. No purpura. No petechiae. No prolonged or excessive bleeding. No palpable lymph nodes. PHYSICAL EXAMINATION: HEENT: Head normocephalic, atraumatic. Eyes: Extraocular muscles are intact. Pupils are equal, round and reactive to light and accommodation. Ears: No lesions. Nose appeared normal. Throat: No exudate or erythema. NECK: Supple. No JVP, no carotid bruit. No lymphadenopathy or thyromegaly. LUNGS: Clear to auscultation. Percussion note normal. Chest symmetrical. HEART: S1, S2, no S3. No murmurs. No cyanosis or clubbing. No ascites. Pulses: Dorsalis pedis and posterior tibial pulses +1 to +2 bilaterally. ABDOMEN: Soft. Nontender. Bowel sounds active. No CVA tenderness. No mass felt. EXTREMITIES: No edema. Full range of motion of all extremities, equal. NEUROLOGIC: No focal deficit. Cranial nerves II through XII are grossly intact. No headache, no double vision or headache. SKIN: Not dry. Intact. Turgor - normal. LYMPHATIC: No palpable lymph nodes/no lymphedema. MUSCULOSKELETAL: Normal joints with no swelling. Muscle tone is normal. LABS: Telemetry sinus rhythm with no acute changes. The patient's CK level is even lower. MB fraction seems to be negative. ASSESSMENT: 1. CK level elevation from skeletal muscle fraction. 2. Multiple sclerosis 3. Peripheral arterial disease 4. Smoking RECOMMENDATIONS: 1. The patient was explained about arthrosclerosis and smoking 2. Non HDL discussed with the patient and goal showed be 100. 3. Strongly advised to followup with the primary care 4. Followup on his cholesterol level, peripheral arterial disease 5. Followup with vascular surgeon for his vascular problems 6. Advised not to abuse narcotic and discussed with him that his problems came from taking very likely overdose of his narcotics; sleeping for two days along with his muscular sclerosis 7. Hypokalemia which is borderline the patient will given K-tab 20meq two tablets now and one twice a day 8. I'm going to sign out from the case because the patient's CK level is falling along with normal cardiovascular status and as dictated in the previous notes the patient's echo showed normal LV contractility and normal valves. MTDD
--- NOTE | 2018-03-08 08:29 | PN ---
03/02/18: Level 5 03/03/18: Extensive 03/04/18: Intermediate The patient has been seen three times including the first day. MTDD
--- NOTE | 2018-03-08 08:38 | CONS ---
DATE OF SERVICE: 03/03/18 CONSULT FOLLOWUP SUBJECTIVE: 47 year old white was seen on consultation because of high level of creatinine kinase. The patient's creatinine kinase is now 390 and on admission it was more than 2,000. His atrial blood gasses are normal and there is no metabolic acidosis and his pH 7.39 with normal pO2 and pCO2. REVIEW OF SYSTEMS: CONSTITUTIONAL: No night sweats. No fatigue, malaise, lethargy. No fever or chills. HEENT: Eyes: No visual changes. No eye pain. No eye discharge. ENT: No runny nose. No epistaxis. No sinus pain. No sore throat. No odynophagia. No ear pain. No congestion. RESPIRATORY: No cough, no congestion. No hemoptysis. CARDIOVASCULAR: No angina symptoms. No CHF symptoms. No atypical chest pain for CAD. No palpitations. No shortness of breath. GASTROINTESTINAL: No abdominal pain. No nausea or vomiting. No diarrhea or constipation. No hematemesis. No hematochezia. GENITOURINARY: No urgency. No frequency. No dysuria. No hematuria. No obstructive symptoms. No discharge. No pain. No significant abnormal bleeding. MUSCULOSKELETAL: No musculoskeletal pain. No joint swelling. No arthritis. Mild weakness. NEUROLOGICAL: No headache. No neck pain. No syncope. No seizures. No dizziness. PSYCHIATRIC: Not anxious. No depression. No suicidal thoughts. No homicidal thoughts. SKIN: No rash. No lesions. No wounds. ENDOCRINE: No unexplained weight loss. No weight gain. HEMATOLOGIC/LYMPHATIC: No anemia. No purpura. No petechiae. No prolonged or excessive bleeding. No palpable lymph nodes. PHYSICAL EXAMINATION: VITAL SIGNS: Temperature 97.9, pulse 78, respiratory 18, blood pressure 132/76 and pulse ox 99%. HEENT: Head normocephalic, atraumatic. Eyes: Extraocular muscles are intact. Pupils are equal, round and reactive to light and accommodation. Ears: No lesions. Nose appeared normal. Throat: No exudate or erythema. NECK: Supple. No JVD, no carotid bruit. No lymphadenopathy or thyromegaly. LUNGS: Decreased breath sounds but clear to auscultation. Percussion note normal. Chest symmetrical. HEART: S1, S2, no S3. No murmurs. No cyanosis or clubbing. No ascites. Pulses: Dorsalis pedis and posterior tibial pulses +1 to +2 bilaterally. ABDOMEN: Soft. Nontender. Bowel sounds active. No CVA tenderness. No mass felt. EXTREMITIES: No edema. Full range of motion of all extremities, equal. NEUROLOGIC: No focal deficit. Cranial nerves II through XII are grossly intact. No headache, no double vision or headache. SKIN: Not dry. Intact. Turgor - normal. LYMPHATIC: No palpable lymph nodes/no lymphedema. MUSCULOSKELETAL: Normal joints with no swelling. Muscle tone is normal. LABS: Hgb 13.9, hct 43. WBC 12,000 normal differential , creatinine 0.7, BUN 15, potassium 4.6. Echo showed normal LV contractility and normal valves. ASSESSMENT: 1. Myositis seems to have resolved 2. Metabolic acidosis resolved 3. Chronic lung disease 4. Peripheral arterial disease 5. Hyperglycemia RECOMMENDATIONS: 1. The patient is strongly advised to quit smoking 2. Peripheral arterial disease discussed 3. Non HDL goal discussed with him 100 if it more than that the patient should be on Statin 4. The patient took a lot of Hydrocodone very likely cause why he slept two days and damaged his muscles. Explanation was given to him. Strongly advised to change his life style. CONDITION: Stable CARDIOVASCULAR STATUS: Stable MTDD
--- NOTE | 2018-03-08 14:11 | CONS ---
DATE OF CONSULTATION: 03/02/18 REASON FOR CONSULTATION: Elevated cardiac markers. HISTORY OF PRESENT ILLNESS: 47 year old white male hospitalized with elevated CK more than 2000 with MB of 1.5. Obviously this CK is from ER. The patient was brought to the emergency room by the family because the patient has been in the bed and slept more two days and didn't realize that. The patient is on Narcotic Amitriptyline, Plavix, Soma. Significant history is left femoral popiteal bypass and stent in the right femoral artery by Dr. Hyman. Urine is normal, yellow colored. The patient's arterial gasses are pH 7.23 with pO2 69, pCO2 42, HCO3 of 17. The patient had metabolic acidosis. Her kidney functions are normal. The patient received Narcan 0.4 mg times two in the ER before fully awake. The patient has weakness and the patient's father reported that the MS symptoms are worse. The patient likely had not eaten times two days. MEDICATIONS: Oxycodone/APAP Soma Plavix Amitriptyline ALLERGIES: PENICILLIN, ERYTHROMYCIN BASE, GABAPENTIN PAST MEDICAL/SURGICAL HISTORY: MS diagnosis in 2000 (? Dr. 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 Dr. Hyman) History of seizure Old infarction per CT SOCIAL HISTORY: Smoker. No alcohol use. Single - lives with father. FAMILY HISTORY: Father living with cancer. REVIEW OF SYSTEMS: CONSTITUTIONAL: Fever - unknown; chills three days ago. Fatigue. Progressive weakness due to MS. HEENT: Eyes: No visual changes. No eye pain. No eye discharge. ENT: No sinus drainage. No epistaxis. No sinus pain. No sore throat. No odynophagia. No ear pain. No congestion. RESPIRATORY: No cough, no congestion. No hemoptysis. No shortness of breath. CARDIOVASCULAR: No angina symptoms. No CHF symptoms. No atypical chest pain for CAD. No palpitations. No orthopnea. GASTROINTESTINAL: Weight loss ? No abdominal pain. No nausea or vomiting. No diarrhea or constipation. No hematemesis. No hematochezia. GENITOURINARY: Dysuria - no mention of frequency or incontinence in the ER. Patient denies incontinence. No urgency. No frequency. No dysuria. No hematuria. No obstructive symptoms. No discharge. No pain. No significant abnormal bleeding. MUSCULOSKELETAL: No musculoskeletal pain. No joint swelling. NEUROLOGICAL: Positive for confusion and lethargy. No headache. No neck pain. No syncope. No seizures. No dizziness. PSYCHIATRIC: Not anxious. No depression. No suicidal thoughts. No homicidal thoughts. SKIN: No rash. No lesions. No wounds. ENDOCRINE: No unexplained weight loss. No weight gain. HEMATOLOGIC/LYMPHATIC: No anemia. No purpura. No petechiae. No prolonged or excessive bleeding. No palpable lymph nodes. PHYSICAL EXAMINATION: V/S: Pulse 83, BP 108/64, temperature 98.1, 02 sat 95% on room air. Weight 109. Awake, alert and oriented times three. HEENT: Head normocephalic, atraumatic. Eyes: Extraocular muscles are intact. Pupils are equal, round and reactive to light and accommodation. Ears: No lesions. Nose appeared normal. Throat: No exudate or erythema. NECK: Supple. No JVP, no carotid bruit. No lymphadenopathy or thyromegaly. LUNGS: Clear to auscultation. Percussion note normal. Chest symmetrical. HEART: S1, S2, no S3. No murmurs. No cyanosis or clubbing. No ascites. Pulses: Dorsalis pedis and posterior tibial pulses +2. Feeble (right) Left questionable, very faint. ABDOMEN: Soft. Nontender. Bowel sounds active. No CVA tenderness. No mass felt. EXTREMITIES: No edema. Full range of motion of all extremities, equal. NEUROLOGIC: No focal deficit. Cranial nerves II through XII are grossly intact. No headache, no double vision or headache. SKIN: Not dry. Intact. Turgor - normal. LYMPHATIC: No palpable lymph nodes/no lymphedema. MUSCULOSKELETAL: Normal joints with no swelling. Muscle tone is normal. LABS/X-RAYS: Chest x-ray nothing acute. CT head - no acute findings. Mild diffuse cerebral atrophy. CT abdomen/pelvis - fecal stasis. Right nonobstructive nephrolithiasis. CT chest - minimal left lower lobe atelectasis. WBC 22.02, Hgb 16.2, HCT 49.5. ABGs - saturation 90%, pH 7.29, pc02 42, p02 69, HC03 18.8, total c02 19. 1) CPK 2089.9, CKMB 37.10, CK-MB % 1.7700. 2) CPK 980.7, CKMB 18.00, CK-MB % 1.8300. ASSESSMENT: 1. ELEVATED CK-MB (4) - LIKELY MUSCULOSKELETAL IN ORIGIN 2. HISTORY OF MULTIPLE SCLEROSIS ?? 3. PERIPHERAL ARTERIAL DISEASE WITH RIGHT FEMORAL STENT, LEFT FEMPOP 4. NARCOTIC ABUSE? 5. METABOLIC ACIDOSIS 6. SMOKING RECOMMENDATIONS: 1. Echo to evaluation LV function 2. Carotid scan 3. T4 TSH 4. A1c 5. Lipids 6. ABG in the morning. Repeated ABG showed pH 7.29 with HCO3 of 18.8 with some improvement. 7. Continue IV fluids 8. Advised the patient to eat 9. Rhabdo discussed, the patient more has muscle injury no real Rhabdomyolysis 10 .The has normal kidney function 11. Orthoptist for smoking done because of his peripheral arterial disease. 12. Non HDL goal 100. Thanks for referral, will follow. CONDITION: Stable PROGNOSIS: Guarded MTDD
--- NOTE | 2018-03-08 14:14 | DS ---
DATE OF SERVICE: 03/05/18 PATIENT IDENTIFICATION: This is a 47-year-old male walked to the emergency room with a friend. The father did call a friend to his house since his son had not been eating or waking up or getting out of bed for the last two days. The patient was brought by a friend to the emergency room and the patient was markedly lethargic, arousable but goes back to sleep. The patient in the emergency room was given Narcan 0.4 mg intravenously, did improve via sensorium however the patient went back to his previous condition and was given another dose of Narcan without any significant effects. I did see the patient prior to admission to the floor. The patient indeed had movement of all extremities and does arouse when questioned but goes promptly back to sleep. I had talked to the father about his son's condition and I asked him about the medication and he told me that he has a prescription of Oxycodone/APAP given by Dr. Ramirez and was filled 02/26/18 and there are only 10 tablets left. The patient does seem to be compliant with his medications. The rest of the medications were Soma 350 four times a day, Plavix 75 mg daily because of the significant vascular problems in both lower extremities, Oxycodone/APAP probably because of the back problems prescribed by Dr. Ramirez of the [facility], Amitriptyline 25 mg tablet 100 mg at bedtime. He later found a prescription of Keppra 750 mg twice a day and there is still a good amount of Keppra left in the bottle, filled 01/25/18. The patient goes to Dr. Santiago for the neurological problem, multiple sclerosis and does prescribe the treatment. The patient did remember later on that bulemia was discontinued because of some problems, don't know exactly. The patient's condition from MS seems to have declined. The patient was given intravenous fluids, Dextrose 5% in lacted ringers at 200 cc/hr. He was given a bolus 1000 cc of NS in the emergency room. Chest CT showed minimal left lower lobe atelectasis/ consolidation or effusion. Right nephrolithiasis without obstruction. CT scan of the abdomen and pelvis showed fecalstasis in the colon otherwise unremarkable. CT head no acute intracranial process. Doppler studies of the carotid no significant hemodynamic abnormalities or stenosis. Initial chest x- ray before CT was read as no acute cardiopulmonary processes. Initial CBC showed 22.02 WBC, 18.1 neutrophils. No stabs. Arterial blood gases pH 7.224, 02 saturation 99, pc02 43.2, p02 158, HC03 18, total c02 19, base excess plus 10, FI02 28. The patient seemed to have metabolic acidosis. Arterial blood gases the next day was essentially the same. The pH has risen slightly to 7.295. The procalcitonin was high at 6.56. Urinalysis showed 4+ ketones, nitrite negative, leukocyte esterase negative. Specific gravity greater than 1.030. The ketones remain 4+ the next day in spite of fluuid replacement. The patient's TSH is 0.064 low, T4 4.2 low (normal 4.5 to 12.0). The PSA is 1.0. The patient late evening 03/02/18 is now alert and responsive. He told me he doesn't know why he was drowsy and lethargic in the last two days. He claimed that he just did not feel good a few days before that. He claimed that the medications for MS were discontinued because of infection that was present. The medication was Gilenya. He could not tell me what kind of infection. Dr. Santiago is the neurologist that follows him for the MS. His EGFR is 113 cc/min. Heart is no longer tachycardic. Lungs have diminished breath sounds. No rales or wheezing. Abdomen nontender. The patient's sensorium had improved remarkably. I had talked to him about his MS and he told me he was diagnosed with MS in 2000. He had used some drugs but stopped that for about one year and had not used any marijuana. The patient's drug screen indeed is negative indicating that he had not used at least more than one month or more. The patient's arterial blood gases on 03/03/18 has returned to normal and his WBC now is close to normal at 12,520 from 22,000. Total CK and MB were elevated and this is probably because of the markedly elevated CK. The MB was 37 and next day was down to 18 and then 30's down to 3. The CK also was reducing to 339 from 2088. This is probably just from laying down at home. Troponin remained normal less than 0.012 on 03/01, 03/02 and 03/03/18. The NT-Pro-BNP has risen to 1 ,140 and the intravenous fluids were discontinued and the NT-Pro-BNP has declined from then on down to 516 on the day of discharge. The AST on admission was slightly elevated 61.9 and that has returned to normal on discharge at 23.6. The procalcitonin has gradually decreased and was down to 0.47 at the time of discharge on 03/05/18. Still do not have the source of the infection. The patient receives Cefepime 2 gm intravenously every 8 hours as well as Aztreonam 1 gm q.8hr. He also received Enoxaparin 40 mg subcutaneously. He was given 2 gm q.12hr and Gentamicin 80 mg intravenously initially and then 60 mg q.8hr. The patient's Gentamicin peak and trough were monitored. Aztreonam was discontinued. The patient had improved remarkably that he is able to get out of bed without any hesitation and he looks much better, alert without any distress. Color is good. He has movement of all extremities. He walks with a cane. He had been ambulated using a cane, tolerated it very well the ambulation. The patient on the day of discharge, at 2 o'clock in the afternoon had the following vital signs temperature 98.5, pulse 94, blood pressure 116/79, respiratory rate 20, oxygen saturation 99 on room air. Heart is normal sinus rhythm. Lungs breath sounds are diminished but no rales or wheezing. Abdomen is soft and notender. The patient could not go home since his father would not allow him to come back home. He called a friend of his who came and picked him up. He will be staying there with him for some time. The patient is discharged, is prescribed Omnicef 300 mg capsule to be taken every 12 hours for four days. He has to see his primary physician and he told me that his doctor is Dr. Mohan and he hasn't changed that. Dr. Mohan mentioned while he was in the emergency room that he was no longer his doctor. The patient however remembers otherwise. I did tell him to go back and make an appointment on his way out of the hospital at Dr. Mohan's office. He needs to be seen by someone to follow him. He has the subspecialty Dr. Ramirez for his back problem and Dr. Santiago for his MS. He is to continue the Amitriptylne, Soma, Plavix, Oxycodone . Keppra was found in his bag and the patient still has Keppra left and he was advised to take the Keppra as well as it was directed. I told him that the Keppra should have already been consumed based upon the last time it was filled. I still do not have the drug levels of the Oxycodone, Soma and Amitriptyline. It appeared from the history that this patient had taken more Oxycodone than what is needed since there was 110 tablets missing after three days of being filled. FINAL DIAGNOSES: 1. LETHARGY SECONDARY TO OPIOID INGESTION MORE THAN PRESCRIBED 2. DEHYDRATION 3. HISTORY OF MS 4. HISTORY OF PERIPHERAL VASCULAR DISEASE BILATERAL LOWER EXTREMITY 5. METABOLIC ACIDOSIS CORRECTED 6. CHRONIC TOBACCO USE AND ABUSE PERSISTENT 7. PROBABLE RHABDOMYOLYSIS, ELEVATED CK 8. NONCOMPLIANT PATIENT PROGNOSIS: Poor TIME SPENT: GREATER THAN 30 MINUTES MTDD
== END 2018-03-05 14:43 | disposition home or self-care (01) | DRG 948 ==
LOC: ED 13:51 → SCU 18:27
PROVIDERS: ADMIT General Practice; ATTEND General Practice
DX: R41.82 Altered mental status, unspecified (principal); E87.2 Acidosis; M62.82 Rhabdomyolysis; R53.1 Weakness; G35 Multiple sclerosis; R41.0 Disorientation, unspecified; R53.83 Other fatigue; Z72.0 Tobacco use; Z91.19 Patient's noncompliance with other medical treatment and regimen
CPT/HCPCS: 36415; 80053; 80061; 80170; 80306; 81001; 82542; 82550; 82553; 82652; 82803; 82962; 83036; 83605; 83735; 83880; 84145; 84436; 84443; 84484; 85025; 87040; 87081; 87502; 93005; 93010; 96361; 96365; 96375; 96376; 99223; 99232; 99233; 99239; 99284

== ENCOUNTER 2018-03-24 05:53 | Outpatient (CLI) | payer OTHER | END 2018-03-24 06:13 | disposition short-term general hospital (02) | LOC: AMBL 05:53 | PROVIDERS: ATTEND Family Medicine | DX: R56.9 Unspecified convulsions (principal); R40.4 Transient alteration of awareness; R00.0 Tachycardia, unspecified; R41.82 Altered mental status, unspecified; R40.2411 Glasgow coma scale score 13-15, in the field [EMT or ambulance] ==

== ENCOUNTER 2018-04-30 23:17 | Emergency (ER) | payer OTHER ==
[2018-04-30] MEDS ORDERED: SODIUM CHLORIDE 1,000 ML IV STA (23:21)
[2018-04-30] MEDS ORDERED: NARCAN IVP STA (23:21)
[2018-04-30 23:26] VITALS: BMI 20.9
--- NOTE | 2018-05-01 01:01 | CT ---
EXAM: CT head without contrast. HISTORY: Fall. PROCEDURE: Contiguous axial CT images of the head without contrast with coronal and sagittal reforma ts. FINDINGS: There is mild diffuse cerebral atrophy. The ventricles and basal cisterns are normal in si ze and configuration. No evidence of mass or midline shift. No intracranial hemorrhage or evidence of large vessel infarct. No extra-axial fluid collection. The paranasal sinuses and mastoid air guillermina ls are normal in appearance. No skull fracture. Impression: No intracranial hemorrhage or skull fracture. Mild diffuse cerebral atrophy.
--- NOTE | 2018-05-01 01:05 | CT ---
EXAM: CT of the cervical spine without contrast. HISTORY: Fall. PROCEDURE: Contiguous axial CT images of the cervical spine with coronal and sagittal reformats. FINDINGS: There is normal alignment of the cervical vertebral bodies and facets. The vertebral body heights and intervertebral disc spaces are maintained. No evidence of fracture. The C1-2 relations hip is maintained. No prevertebral soft tissue abnormality. Impression: Negative CT of the cervical spine.
[2018-05-01 06:36] VITALS: BP 103/68; TEMP 97.8
--- NOTE | 2018-05-01 06:50 | ED.PDOC ---
General ED Provider: Dr. ALESSANDRA GRAY-ER Chief Complaint: Altered Mental Status Stated Complaint: i had 3-4 shots or bourbon--it hit me hard Time Seen by Physician: 23:20 Mode of Arrival: Ambulance Information Source: EMT Exam Limitations: Altered mental status, Intoxication Primary Care Provider: ALESSANDRA GRAY Nursing and Triage Documentation Reviewed and Agree: Yes Does patient meet sepsis criteria?: No System Inflammatory Response Syndrome: Not Applicable Sepsis Protocol: For patient's 13 years and over: Temp is 96.8 and below OR 101 and greater Pulse >90 BPM Resp >20/minute Acutely Altered Mental Status Are patient's symptoms suggestive of a new infection, such as: -Pneumonia -Skin, Soft Tissue -Endocarditis -UTI -Bone, Joint Infection -Implantable Device -Acute Abdominal Infection -Wound Infection -Meningitis -Blood Stream Catheter Infection -Unknown Neurological Complaint Exam - Altered Mental Status Complaint/Exam Current Mental Status: Unresponsiveness Symptoms Are: Still present Initial Severity: Mild Current Severity: Mild Eye Deviation Present: No Character: Reports: Responsiveness, Lethargy Aggravating: Reports: Ingestion Alleviating: Reports: Spontaneous resolution Associated Signs and Symptoms: Denies: Dizziness, Weakness, Headache, Fever, Illness, Nuchal rigidity, Seizure, Nausea, Vomiting, Recently depressed, Trauma Cardiac Risk Factors: Reports: None CVA Risk Factors: Reports: None Related Surgical History: Reports: None Carotid Bruit Present: No Nystagmus Present: No Gag Reflex Present: Yes Meningeal Signs Positive: No Focal Weakness: Present: None Focal Sensory Loss: Present: None Gait: Unsteady Romberg Test Positive: No Babinski Sign: Negative Right, Negative Left Heel to Toe Normal: Yes Signs of Injury: Present: Normal findings Thrombolytics Considered: No Differential Diagnoses: Intoxication Review of Systems - Review Of Systems Constitutional: Reports: No symptoms Eyes: Reports: No symptoms Ears, Nose, Mouth, Throat: Reports: No symptoms Respiratory: Reports: No symptoms Cardiac: Reports: No symptoms GI: Reports: No symptoms : Reports: No symptoms Musculoskeletal: Reports: No symptoms Skin: Reports: No symptoms Neurological: Reports: Cognitive dysfunction Endocrine: Reports: No symptoms Hematologic/Lymphatic: Reports: No symptoms All Other Systems: Reviewed and Negative Past Medical History - Past Medical History Previously Healthy: No Endocrine: Reports: Unknown Cardiovascular: Reports: Unknown Respiratory: Reports: Unknown Hematological: Reports: Unknown Gastrointestinal: Reports: Unknown Genitourinary: Reports: Unknown Neuro/Psych: Reports: Unknown Musculoskeletal: Reports: Unknown Cancer: Reports: Unknown Other Pertinent Past Medical History: legally blind Ambulates with a straight cane - Surgical History General Surgical History: Reports: Unknown - Family History Family History: Reports: Unknown - Social History Smoking Status: Current every day smoker, Heavy tobacco smoker Hx Substance Use: No Alcohol Screening: Occasionally - Immunizations Tetanus Shot up to Date: (UNKNOWN) Physical Exam - Physical Exam Appearance: Well-appearing, No pain distress, Well-nourished Eyes: APRIL, EOMI, Conjunctiva clear ENT: Ears normal, Nose normal, Oropharynx normal Neck: Supple Respiratory: Airway patent Cardiovascular: RRR, Pulses normal, No rub, No murmur GI/: Soft, Nontender, No masses, Bowel sounds normal, No Organomegaly Musculoskeletal: Normal strength, ROM intact, No edema, No calf tenderness Skin: Warm, Dry, Normal color Neurological: Sensation intact, Motor intact, Reflexes intact, Cranial nerves intact Psychiatric: Affect appropriate, Mood appropriate Interpretation - Radiology Interpretation Radiology Interpretation By: Radiologist Radiology Results: Negative Exam Interpreted: CT Scan Re-Evaluation - Re-Evaluation Time of Re-Evaluation: 06:53 Status: Improved Vital Signs Stable: Yes Pain Level: 0 Appearance: NAD Lungs: Clear Skin: Warm and Dry Neuro: Alert and Oriented X3 CV: RRR Additional Comments: answers all questions appropriately now Critical Care Note - Critical Care Note Total Time (mins): 0 Course - Course Hematology/Chemistry: 04/30/18 23:30 04/30/18 23:30 Orders, Labs, Meds: Lab Review 04/30/18 04/30/18 04/30/18 23:20 23:30 23:30 WBC 7.67 RBC 3.95 L Hgb 12.8 L Hct 37.9 L MCV 95.9 H MCH 32.4 H MCHC 33.8 RDW Coeff of Aj 14.3 Plt Count 389 Immature Gran % (Auto) 0.3 Neut % (Auto) 57.9 Lymph % (Auto) 25.6 [place] % (Auto) 12.3 H Eos % (Auto) 3.0 Baso % (Auto) 0.9 Immature Gran # (Auto) 0.0 Neut # (Auto) 4.5 Lymph # (Auto) 2.0 [place] # (Auto) 0.9 Eos # (Auto) 0.2 Baso # (Auto) 0.1 Puncture Site Rbrach O2 Saturation 99.0 ABG pH 7.322 L ABG pCO2 40.7 ABG pO2 126.0 H ABG HCO3 21.1 L ABG Total CO2 22 ABG Base Excess -5 L Adam Test + FiO2 % 21.0 Sodium 142.8 Potassium 3.43 L Chloride 110.5 H Carbon Dioxide 22.3 Anion Gap 13.43 BUN 16.3 Creatinine 0.69 Estimated GFR (MDRD) 123.00 BUN/Creatinine Ratio 23.62 Glucose 110.7 H Calcium 8.10 L Total Bilirubin 0.18 L AST 11.6 L ALT 10.2 Alkaline Phosphatase 58.1 Total Creatine Kinase 35.5 L Troponin I < 0.012 Total Protein 6.43 Albumin 3.89 Globulin 2.54 Albumin/Globulin Ratio 1.53 Urine Color Urine Clarity Urine pH Ur Specific [place] Urine Protein Urine Glucose (UA) Urine Ketones Urine Blood Urine Nitrite Urine Bilirubin Urine Urobilinogen Ur Leukocyte Esterase Ur Squamous Epith Cells Amorphous Sediment Fine Granular Casts Urine Opiates Screen Ur Oxycodone Screen Urine Methadone Screen Ur Propoxyphene Screen Ur Barbiturates Screen U Tricyclic Antidepress Ur Phencyclidine Scrn Ur Amphetamine Screen U Methamphetamines Scrn U Benzodiazepines Scrn Urine Cocaine Screen U Cannabinoids Screen Plasma/Serum Alcohol 213.2 H 05/01/18 05/01/18 06:20 06:20 WBC RBC Hgb Hct MCV MCH MCHC RDW Coeff of Aj Plt Count Immature Gran % (Auto) Neut % (Auto) Lymph % (Auto) [place] % (Auto) Eos % (Auto) Baso % (Auto) Immature Gran # (Auto) Neut # (Auto) Lymph # (Auto) [place] # (Auto) Eos # (Auto) Baso # (Auto) Puncture Site O2 Saturation ABG pH ABG pCO2 ABG pO2 ABG HCO3 ABG Total CO2 ABG Base Excess Adam Test FiO2 % Sodium Potassium Chloride Carbon Dioxide Anion Gap BUN Creatinine Estimated GFR (MDRD) BUN/Creatinine Ratio Glucose Calcium Total Bilirubin AST ALT Alkaline Phosphatase Total Creatine Kinase Troponin I Total Protein Albumin Globulin Albumin/Globulin Ratio Urine Color Yellow Urine Clarity Clear Urine pH 6.0 Ur Specific [place] 1.025 Urine Protein 2+ Urine Glucose (UA) Negative Urine Ketones Negative Urine Blood Negative Urine Nitrite Negative Urine Bilirubin Negative Urine Urobilinogen 0.2 Ur Leukocyte Esterase Negative Ur Squamous Epith Cells Not present Amorphous Sediment Trace Fine Granular Casts 0-2 Urine Opiates Screen Negative Ur Oxycodone Screen Negative Urine Methadone Screen Negative Ur Propoxyphene Screen Negative Ur Barbiturates Screen Negative U Tricyclic Antidepress Positive Ur Phencyclidine Scrn Negative Ur Amphetamine Screen Negative U Methamphetamines Scrn Negative U Benzodiazepines Scrn Positive Urine Cocaine Screen Negative U Cannabinoids Screen Negative Plasma/Serum Alcohol Orders Category Date Time Status ABG DRAW REQUEST Stat CARDIO 04/30/18 23:20 Completed EKG-(ED ONLY) Stat CARDIO 04/30/18 23:20 Completed ED IV/MEDIPORT/POWERPORT .ONCE EMERGENCY 04/30/18 23:20 Active ABG Stat LAB 04/30/18 23:20 Completed BLOOD ALCOHOL Stat LAB 04/30/18 23:30 Completed CBC W/ AUTO DIFF Stat LAB 04/30/18 23:30 Completed COMPREHENSIVE METABOLIC PANEL Stat LAB 04/30/18 23:30 Completed CREATINE KINASE Stat LAB 04/30/18 23:30 Completed TROPONIN I Stat LAB 04/30/18 23:30 Completed URINALYSIS C & S IF INDICATED Stat LAB 05/01/18 06:20 Completed URINE DRUG SCREEN (RAPID FOR ED) [DRUG SCREEN, URINE, LAB 05/01/18 06:20 Completed RAPID] Stat 0.9 % Sodium Chloride [Saline Flush] MEDS 04/30/18 23:20 Active 1 syr IVF PRN PRN Naloxone HCl [Narcan] MEDS 04/30/18 23:21 Discontinued 0.4 mg IVP ONCE STA Sodium Chloride 0.9% [Sodium Chloride] 1,000 ml MEDS 04/30/18 23:21 Active IV 100 mls/hr CT CERVICAL SPINE W/O CONTRAST Stat RADS 04/30/18 23:[address] HEAD W/O CONTRAST Stat RADS 04/30/18 23:22 Completed Medications Generic Name Dose Route Start Last Admin Trade Name Freq PRN Reason Stop Dose Admin Sodium Chloride 1,000 mls @ 100 mls/hr 04/30/18 23:21 04/30/18 23:31 Sodium Chloride IV 05/01/18 09:20 100 mls/hr .Q10H STA Administration Sodium Chloride 1 syr 04/30/18 23:20 Saline Flush IVF PRN PRN To flush IV Discontinued Medications Generic Name Dose Route Start Last Admin Trade Name Freq PRN Reason Stop Dose Admin Naloxone HCl 0.4 mg 04/30/18 23:21 04/30/18 23:31 Narcan IVP 04/30/18 23:22 0.4 mg ONCE STA Administration Vital Signs: Temp Pulse Resp BP Pulse Ox 05/01/18 06:34 97.8 F 75 18 103/68 98 04/30/18 23:18 97.3 F L 83 20 107/87 100 Departure - Departure Time of Disposition: 06:50 Disposition: HOME SELF-CARE Discharge Problem: Intoxication Instructions: Alcohol Intoxication (ED) Condition: Good Pt referred to PMD for follow-up: Yes IPMP verified?: No Additional Instructions: f/u with pcp Allergies/Adverse Reactions: Allergies erythromycin base Adverse Reaction (Verified 03/01/18 14:02) gabapentin [From Neurontin] Adverse Reaction (Verified 03/01/18 14:02) Penicillins Adverse Reaction (Verified 03/01/18 14:02) Home Medications: Ambulatory Orders Carisoprodol [Soma] 350 mg PO QID 10/07/12 Clopidogrel Bisulfate [Plavix] 75 mg PO DAILY 12/15/16 Oxycodone HCl/Acetaminophen [Percocet 10-325 mg Tablet] 1 tab PO QID 12/15/16 Amitriptyline HCl [Elavil] 100 mg PO DAILY 01/22/18 Cefdinir [Omnicef] 300 mg PO Q12HR #8 capsule 03/05/18 Disposition Discussed With: Patient
== END 2018-05-01 08:13 | disposition home or self-care (01) ==
LOC: ED 23:17
DX: R41.82 Altered mental status, unspecified (principal); F10.129 Alcohol abuse with intoxication, unspecified
CPT/HCPCS: 36415; 80053; 80306; 80307; 81001; 82550; 82803; 84484; 85025; 93005; 93010; 96361; 96374; 99284